=== PATIENT | female | born 1975 | race Two or more races ===

== ENCOUNTER 2024-08-20 13:35 | Inpatient (IN) | payer OTHER ==
[~2024-08-20] VITALS: Ht 160 cm; Wt 65.9 kg
[2024-08-20] MEDS ORDERED: VALA100026 PO (13:44)
[2024-08-20] MEDS ORDERED: FAMO20 PO (13:44)
[2024-08-20] MEDS ORDERED: LEVO50 PO (13:44)
[2024-08-20 16:07] LABS: BASOPHILS % (AUTO) 0.6 % (0.0-2.0); HEMATOCRIT 37.8 % (36-46); HEMOGLOBIN 12.6 g/dL (12.0-16.0); LYMPHOCYTES # (AUTO) 0.9 K/uL (1.0-4.8); LYMPHOCYTES % (AUTO) 15.3 % (22.0-44.0); MEAN CORPUSCULAR HGB CONC 33.2 G/dL (31.0-37.0); MEAN CORPUSCULAR VOLUME 96 fL (80-100); MONOCYTES # (AUTO) 0.4 K/uL (0.1-1.0); MONOCYTES % (AUTO) 6.3 % (2.0-9.0); NEUTROPHILS # (AUTO) 4.7 K/uL (1.8-7.7); NEUTROPHILS % (AUTO) 76.8 % (40.0-70.0); PLATELET COUNT (AUTO) 296 K/uL (150-450); RED BLOOD CELL COUNT(AUTO) 3.93 MIL/uL (4.00-5.20); RED CELL DISTRIBUTION WIDTH 18.5 % (11.5-14.5); WHITE BLOOD COUNT (AUTO) 6.2 K/uL (4.5-11.0)
[2024-08-20 16:21] LABS: PROTHROMBIN TIME 10.2 SEC (9.4-11.6)
[2024-08-20 16:25] LABS: B-TYPE NATRIURETIC PEPTIDE < 5 pg/mL (0-100)
[2024-08-20 16:43] LABS: ANION GAP 7 mmol/L (8-16); CARBON DIOXIDE 29 mmol/L (22-29); CHLORIDE 105 mmol/L (98-107); CREATININE 0.83 mg/dL (0.60-1.30); GLOMERULAR FILTR. RATE CALC > 60 mL/min (>60); GLUCOSE,RANDOM 99 mg/dL (70-110); POTASSIUM 3.6 mmol/L (3.5-5.1); SODIUM SERUM 141 mmol/L (136-145); UREA NITROGEN, BLOOD 19 mg/dL (7-18)
[2024-08-20 16:51] LABS: TROPONIN I-HIGH SENSITIVITY Less Than 4 ng/L (<51)
[2024-08-20 17:00] LABS: ALANINE AMINOTRANSFERASE 24 U/L (12-78); ALBUMIN 3.7 g/dL (3.4-5.0); ALKALINE PHOSPHATASE 84 U/L (46-116); ASPARTATE AMINOTRANSFERASE 19 U/L (15-37); BILIRUBIN,TOTAL 0.2 mg/dL (0.1-1.0); CREATINE KINASE, TOTAL ONLY 144 U/L (26-192); TOTAL PROTEIN, SERUM 7.3 g/dL (6.4-8.2)
[2024-08-20] MEDS: FentaNYL CITRATE PF 100 MCG/2 ML VIAL IVP ONE (17:33)
[2024-08-20] MEDS: SODIUM CHLORIDE 0.9% 1,000 ML IV ONE (17:33)
[2024-08-20 17:36] LABS: APPEARANCE,URINE TURBID (CLEAR); BILIRUBIN,URINE NEGATIVE (NEGATIVE); COLOR,URINE YELLOW (YELLOW); GLUCOSE, URINE (UA) NEGATIVE (NEGATIVE); KETONES,URINE NEGATIVE (NEGATIVE); LEUKOCYTE ESTERASE ,URINE NEGATIVE (NEGATIVE); NITRATE,URINE NEGATIVE (NEGATIVE); OCCULT BLOOD,URINE NEGATIVE (NEGATIVE); PROTEIN,URINE TRACE mg/dL (NEGATIVE); SPECIFIC GRAVITIY, URINE 1.033 (1.003-1.030); UROBILINOGEN,URINE <=1.0 mg/dL (<=1.0)
[2024-08-20] MEDS: ONDANSETRON HCL 4 MG/2 ML VIAL IVP ONE (18:34)
[2024-08-20 18:53] LABS: BACTERIA,URINE Many /HPF (None Seen); CALCIUM OXALATE CRYSTALS,UR Moderate /LPF (None Seen); RBC,URINE None Seen /HPF (0-2); URIC ACID CRYSTALS,URINE Many /LPF (None Seen); WBC,URINE None Seen /HPF (0-5)
[2024-08-21] MEDS ORDERED: 0.9% SODIUM CHLORIDE 10 ML SYRINGE IVP PRN (02:15)
[2024-08-21 02:33] LABS: ANION GAP 6 mmol/L (8-16); CALCIUM, TOTAL 8.5 mg/dL (8.8-10.5); CARBON DIOXIDE 29 mmol/L (22-29); CHLORIDE 106 mmol/L (98-107); CREATININE 0.74 mg/dL (0.60-1.30); GLOMERULAR FILTR. RATE CALC > 60 mL/min (>60); GLUCOSE,RANDOM 97 mg/dL (70-110); POTASSIUM 3.9 mmol/L (3.5-5.1); SODIUM SERUM 141 mmol/L (136-145); UREA NITROGEN, BLOOD 14 mg/dL (7-18)
[2024-08-21 05:29] VITALS: BP 140/79; PULSE 50; RESP 18; TEMP 97.6; O2SAT 100
[2024-08-21] MEDS: LEVOTHYROXINE SODIUM 50 MCG TABLET PO SCH (06:44)
[2024-08-21] MEDS: ENOXAPARIN SODIUM 40 MG/0.4 ML PF SYRINGE SQ SCH (09:48)
[2024-08-21] MEDS: FAMOTIDINE 20 MG TABLET PO SCH (09:49)
[2024-08-21 10:18] VITALS: BP 135/65; PULSE 63; RESP 18; TEMP 97.8; O2SAT 100
[2024-08-21] MEDS: ValACYclovir HCL 500 MG TABLET PO SCH (15:31)
[2024-08-21 15:44] VITALS: BP 148/93; PULSE 62; RESP 18; TEMP 98; O2SAT 99
[2024-08-21 19:20] VITALS: BP 135/76; PULSE 63; RESP 20; TEMP 97.8; O2SAT 99
[2024-08-21] MEDS: ACETAMINOPHEN 325 MG TABLET PO PRN (20:06)
[2024-08-22 04:20] VITALS: BP 126/83; PULSE 55; RESP 18; TEMP 97.7; O2SAT 100
[2024-08-22] MEDS: ONDANSETRON HCL 4 MG/2 ML VIAL IVP PRN (06:39)
[2024-08-22 07:36] LABS: MAGNESIUM 2.1 mg/dL (1.80-2.40)
[2024-08-22 07:40] LABS: BASOPHILS % (AUTO) 0.4 % (0.0-2.0); EOSINOPHILS % (AUTO) 1.3 % (1.0-6.0); HEMATOCRIT 34.2 % (36-46); HEMOGLOBIN 11.7 g/dL (12.0-16.0); LYMPHOCYTES # (AUTO) 0.9 K/uL (1.0-4.8); LYMPHOCYTES % (AUTO) 16.1 % (22.0-44.0); MEAN CORPUSCULAR HEMOGLOBIN 32.6 pg (26.0-34.0); MEAN CORPUSCULAR HGB CONC 34.2 G/dL (31.0-37.0); MEAN CORPUSCULAR VOLUME 96 fL (80-100); MONOCYTES # (AUTO) 0.3 K/uL (0.1-1.0); NEUTROPHILS # (AUTO) 4.2 K/uL (1.8-7.7); NEUTROPHILS % (AUTO) 77.2 % (40.0-70.0); PLATELET COUNT (AUTO) 236 K/uL (150-450); RED BLOOD CELL COUNT(AUTO) 3.58 MIL/uL (4.00-5.20); RED CELL DISTRIBUTION WIDTH 17.8 % (11.5-14.5); WHITE BLOOD COUNT (AUTO) 5.5 K/uL (4.5-11.0)
[2024-08-22 08:06] VITALS: BP 139/91; PULSE 56; RESP 17; TEMP 98.5; O2SAT 100
[2024-08-22 11:15] LABS: THYROID STIMULATING HORMONE 98.75 uIU/mL (0.36-3.74)
[2024-08-22 18:14] VITALS: BP 126/90; PULSE 62; RESP 18; TEMP 97.8; O2SAT 100
[2024-08-22 21:11] VITALS: BP 104/65; PULSE 60; RESP 18; TEMP 97.4; O2SAT 98
[2024-08-23 03:45] VITALS: BP 108/75; PULSE 56; RESP 18; TEMP 97.5; O2SAT 100
[2024-08-23 08:23] VITALS: BP 148/90; PULSE 65; RESP 17; TEMP 97.4; O2SAT 100
[2024-08-23] MEDS ORDERED: GADOTERATE MEGLUMINE 10 MMOL/20 ML VIAL IVP ONE (09:53)
[2024-08-23] MEDS ORDERED: ACET-3385 PO (13:18)
[2024-08-23] MEDS ORDERED: ALBU18HF12 IH (13:19)
[2024-08-23] MEDS ORDERED: APIX5TAB PO (13:58)
[2024-08-23] MEDS ORDERED: ATOR40TA28 PO (13:58)
[2024-08-23] MEDS ORDERED: ASPI-1450 PO (13:58)
[2024-08-23] MEDS ORDERED: PANT-31 PO (13:59)
[2024-08-23] MEDS ORDERED: NAPR-1025 PO (13:59)
[2024-08-23] MEDS ORDERED: FAMO20 PO (13:59)
[2024-08-23] MEDS ORDERED: TRAM50TA5 PO (13:59)
[2024-08-23] MEDS ORDERED: VALA500T42 PO (13:59)
[2024-08-23] MEDS ORDERED: HYDR-4062 PO (13:59)
[2024-08-23] MEDS ORDERED: MEDR5TAB5 PO (13:59)
[2024-08-23] MEDS ORDERED: TRAZ-257 PO (13:59)
[2024-08-23] MEDS ORDERED: NITR-75 PO (13:59)
[2024-08-23] MEDS ORDERED: CLON-592 PO (13:59)
[2024-08-23] MEDS ORDERED: LEVO150 PO (13:59)
[2024-08-23] MEDS ORDERED: CABO40TA PO (13:59)
[2024-08-23] MEDS ORDERED: LISI-894 PO (13:59)
[2024-08-23] MEDS ORDERED: DOCU-385 PO (13:59)
[2024-08-23] MEDS ORDERED: SERT-162 PO (13:59)
[2024-08-23] MEDS ORDERED: ONDA-104 PO (13:59)
[2024-08-23] MEDS ORDERED: PERCT PO (13:59)
[2024-08-23] MEDS ORDERED: LORA-1000 PO (13:59)
[2024-08-23] MEDS: MethylPREDNISolone SOD SUCC 125 MG/2 ML VIAL IVP ONE (15:26)
[2024-08-23 16:29] VITALS: BP 136/78; PULSE 64; RESP 19; TEMP 98.2; O2SAT 98
[2024-08-23 17:30] LABS: GLUCOMETER DEV NAME(LOC) 6S.1D; GLUCOSE,POINT OF CARE 98 MG/DL (70-110)
[2024-08-23 19:40] VITALS: BP 130/76; PULSE 72; RESP 16; TEMP 97.7; O2SAT 98
[2024-08-24 06:34] VITALS: BP 134/92; PULSE 65; RESP 16; TEMP 98.5; O2SAT 99
[2024-08-24] MEDS: HYDROCODONE/ACETAMINOPHEN 5-325 MG TABLET PO PRN (06:34)
[2024-08-24 08:00] VITALS: BP 124/87; PULSE 84; RESP 17; TEMP 98.1; O2SAT 99
[2024-08-24 16:16] VITALS: BP 144/74; PULSE 58; RESP 16; TEMP 98.1; O2SAT 99
[2024-08-24 19:26] VITALS: BP 134/78; PULSE 58; RESP 18; TEMP 97.5; O2SAT 98
[2024-08-25 04:27] VITALS: BP 110/80; PULSE 60; RESP 18; TEMP 97.7; O2SAT 100
[2024-08-25 07:54] VITALS: BP 128/71; PULSE 54; RESP 20; TEMP 98.7; O2SAT 99
== END 2024-08-25 09:47 | disposition hospice, home (50) | DRG 861 ==
LOC: EMS 13:35 → EDH 08-21 02:40 → 6S 08-21 04:40
PROVIDERS: ADMIT Family Medicine; ATTEND Family Medicine
DX: G89.3 Neoplasm related pain (acute) (chronic) (principal); C78.01 Secondary malignant neoplasm of right lung; C79.82 Secondary malignant neoplasm of genital organs; C73 Malignant neoplasm of thyroid gland; C79.89 Secondary malignant neoplasm of other specified sites; E03.9 Hypothyroidism, unspecified; I10 Essential (primary) hypertension; G89.4 Chronic pain syndrome; C78.02 Secondary malignant neoplasm of left lung; K21.9 Gastro-esophageal reflux disease without esophagitis; E78.5 Hyperlipidemia, unspecified; K59.00 Constipation, unspecified; G47.00 Insomnia, unspecified; Z88.0 Allergy status to penicillin; Z91.041 Radiographic dye allergy status
CPT/HCPCS: 70450; 70490; 70551; 70552; 71045; 71250; 72192; 74150; 80048; 80053; 81001; 81003; 82550; 82962; 83735; 83880; 84443; 84484; 85025; 85610; 85730; 87086; 93005; 99285; J1650; J2405; J2919; J3010; J7030; 36415-L1; 36415-TC